=== PATIENT | male | born 1985 | race Caucasian/White ===

== ENCOUNTER 2022-10-26 19:25 | Emergency (ER) | payer SELFPAY ==
[2022-10-26 20:17] VITALS: PULSE 103; RESP 16; TEMP 37.1; O2SAT 96; BMI 51.5
--- NOTE | 2022-10-26 20:33 | ED.EAR1 ---
Documented by User: NERY Ken 10/26/22 20:35 HPI - Ear Problem General Chief complaint: Ear Stated complaint: EARACHE Time Seen by Provider: 10/26/22 20:25 Source: patient Mode of arrival: walk-in Limitations: no limitations History of Present Illness HPI Narrative: patient is a 37-year-old male who presents to the emergency department for decreased hearing in his right ear for the last two weeks. He denies any new or different symptoms today which prompted him to come to the emergency department. He has had no fevers, drainage from the ear. He has no pain in the ear. He states his right ear has slightly decreased hearing compared to the left and he has a history of ear infections. No medications taken prior to arrival. he denies any significant cough, congestion or other upper respiratory symptoms. No fevers. Related Data Home Medications Medication Instructions Recorded Confirmed No Known Home Medications 10/26/22 10/26/22 Previous Rx's Medication Instructions Recorded amoxicillin 500 mg capsule 500 mg PO TID 10 days #30 caps 10/26/22 cetirizine 5 mg-pseudoephedrine ER 1 tab PO BID #10 tabs 10/26/22 120 mg tablet,extended release,12hr (Zyrtec-D) Allergies Allergy/AdvReac Type Severity Reaction Status Date / Time No Known Drug Allergies Allergy Verified 10/26/22 20:16 Review of Systems ROS Constitutional Denies: fever or chills Ears, nose, mouth, and throat Denies: throat pain, nasal discharge or nasal congestion Cardiovascular Denies: chest pain Respiratory Denies: shortness of breath or cough Gastrointestinal Denies: nausea or vomiting Integumentary/Breast Denies: rash Neurological Denies: headache Allergic/Immunologic Denies: hives PFSH [facility] Social History Smoking status: Former smoker Exam Narrative Exam Narrative: Gen.: Awake, alert, in no distress Head: Normocephalic, atraumatic ENT: Moist mucous membranes; left tympanic membrane is minimally fluid-filled, right tympanic membrane is moderately fluid-filled, bulging with evidence of serous otitis media. No perforation or drainage in the canal. Respiratory: No respiratory distress Extremities: Moves extremities equally Psych: Normal mood and affect Neuro: No focal neuro deficit Skin: Warm, dry, intact Constitutional Vital Signs, click to edit/add: Last Vital Signs Temp 98.7 F 10/26/22 20:17 Pulse 103 H 10/26/22 20:17 Resp 16 10/26/22 20:17 Pulse Ox 96 10/26/22 20:17 O2 Del Method Room Air 10/26/22 20:17 Course Vital Signs Vital signs: Vital Signs Temperature 98.7 F 10/26/22 20:17 Pulse Rate 103 H 10/26/22 20:17 Respiratory Rate 16 10/26/22 20:17 Pulse Oximetry 96 10/26/22 20:17 Oxygen Delivery Method Room Air 10/26/22 20:17 Temperature 98.7 F 10/26/22 20:17 Pulse Rate 103 H 10/26/22 20:17 Respiratory Rate 16 10/26/22 20:17 Pulse Oximetry 96 10/26/22 20:17 Oxygen Delivery Method Room Air 10/26/22 20:17 Medical Decision Making MDM Narrative Medical decision making narrative: patient treated for a serous otitis media of the right ear with amoxicillin and Zyrtec-D. Follow-up with PCP and return to the Emergency Room if symptoms change or worsen. Medical Records Medical records reviewed: Yes I reviewed the patient's medical records Discharge Plan Discharge Chief Complaint: Ear Clinical Impression: Acute serous otitis media, Decreased hearing of right ear Patient Disposition: Home, Self-Care Time of Disposition Decision: 20:31 Condition: Good Prescriptions / Home Meds: New cetirizine-pseudoephedrine [Zyrtec-D] 5-120 mg tablet extended release 12 hr 1 tab PO BID Qty: 10 0RF amoxicillin 500 mg capsule 500 mg PO TID 10 Days Qty: 30 0RF No Action No Known Home Medications Instructions: Ear Infection (ED), Fluid In The Ear (Serous Otitis Media) (ED) Stand Alone Forms: Portal Instructions Referrals: Physician,Non-Staff, MD [Primary Care Provider] - 1 week Discharge Date/Time: 10/26/22 20:37 Documented by User: Marita Uribe MD 10/26/22 23:59 HPI - Ear Problem General Chief complaint: Ear Stated complaint: EARACHE Time Seen by Provider: 10/26/22 20:25 Related Data Home Medications Medication Instructions Recorded Confirmed No Known Home Medications 10/26/22 10/26/22 Previous Rx's Medication Instructions Recorded amoxicillin 500 mg capsule 500 mg PO TID 10 days #30 caps 10/26/22 cetirizine 5 mg-pseudoephedrine ER 1 tab PO BID #10 tabs 10/26/22 120 mg tablet,extended release,12hr (Zyrtec-D) Allergies Allergy/AdvReac Type Severity Reaction Status Date / Time No Known Drug Allergies Allergy Verified 10/26/22 20:16 PFSH PFSH Social History Smoking status: Former smoker Exam Constitutional Vital Signs, click to edit/add: Last Vital Signs Temp 98.7 F 10/26/22 20:17 Pulse 103 H 10/26/22 20:17 Resp 16 10/26/22 20:17 Pulse Ox 96 10/26/22 20:17 O2 Del Method Room Air 10/26/22 20:17 Course Vital Signs Vital signs: Vital Signs Temperature 98.7 F 10/26/22 20:17 Pulse Rate 103 H 10/26/22 20:17 Respiratory Rate 16 10/26/22 20:17 Pulse Oximetry 96 10/26/22 20:17 Oxygen Delivery Method Room Air 10/26/22 20:17 Temperature 98.7 F 10/26/22 20:17 Pulse Rate 103 H 10/26/22 20:17 Respiratory Rate 16 10/26/22 20:17 Pulse Oximetry 96 10/26/22 20:17 Oxygen Delivery Method Room Air 10/26/22 20:17 Medical Decision Making MDM Narrative Medical decision making narrative: patient treated for a serous otitis media of the right ear with amoxicillin and Zyrtec-D. Follow-up with PCP and return to the Emergency Room if symptoms change or worsen. Attending physician attestation I have reviewed the mid-level documentation, agree with the documentation, medical decision making and treatment plan as outlined by the mid-level provider. Discharge Plan Discharge Chief Complaint: Ear Clinical Impression: Acute serous otitis media, Decreased hearing of right ear Patient Disposition: Home, Self-Care Time of Disposition Decision: 20:31 Condition: Good Prescriptions / Home Meds: New cetirizine-pseudoephedrine [Zyrtec-D] 5-120 mg tablet extended release 12 hr 1 tab PO BID Qty: 10 0RF amoxicillin 500 mg capsule 500 mg PO TID 10 Days Qty: 30 0RF No Action No Known Home Medications Instructions: Ear Infection (ED), Fluid In The Ear (Serous Otitis Media) (ED) Stand Alone Forms: Portal Instructions Referrals: Physician,Non-Staff, MD [Primary Care Provider] - 1 week Discharge Date/Time: 10/26/22 20:37
== END 2022-10-26 20:37 | disposition home or self-care (01) ==
PROVIDERS: Emergency Provider Emergency Medicine
DX: H65.01 Acute serous otitis media, right ear (principal); H91.92 Unspecified hearing loss, left ear; Z87.891 Personal history of nicotine dependence
CPT/HCPCS: 99283

== ENCOUNTER 2023-02-14 09:10 | Emergency (ER) | payer SELFPAY ==
[2023-02-14 09:15] VITALS: BP 184/94; PULSE 124; RESP 20; TEMP 36.6; O2SAT 96; BMI 51.5
--- NOTE | 2023-02-14 09:31 | ED.EAR1 ---
HPI - Ear Problem General Chief complaint: Ear Stated complaint: SINUS/EAR PAIN R SIDE Time Seen by Provider: 02/14/23 09:25 Source: patient Mode of arrival: walk-in History of Present Illness HPI Narrative: 37-year-old male presents for right ear pain. It started at one hundred 2:00 this morning. He's had some sinus issues recently. No drainage or bleeding coming from his ear. He doesn't complain of a sore throat or left ear pain. The pain is moderate to severe and continuous. Related Data Home Medications Medication Instructions Recorded Confirmed No Known Home Medications 10/26/22 10/26/22 Previous Rx's Medication Instructions Recorded amoxicillin 500 mg capsule 500 mg PO TID 10 days #30 caps 10/26/22 cetirizine 5 mg-pseudoephedrine ER 1 tab PO BID #10 tabs 10/26/22 120 mg tablet,extended release,12hr (Zyrtec-D) amoxicillin 500 mg capsule 500 mg PO TID 10 days #30 caps 02/14/23 ibuprofen 800 mg tablet 800 mg PO Q8H PRN pain #20 tabs 02/14/23 Allergies Allergy/AdvReac Type Severity Reaction Status Date / Time No Known Drug Allergies Allergy Verified 10/26/22 20:16 Review of Systems ROS Narrative A ten point review of systems is negative except as noted above. PFSH PFSH Social History Smoking status: Former smoker Exam Narrative Exam Narrative: Nurses note and vital signs reviewed and patient is not hypoxic. General: The patient appears well and in no apparent distress. Patient is resting comfortably on cart. Skin: Warm, dry, no pallor noted. There is no rash noted. Head: Normocephalic, atraumatic Eye: Normal conjunctiva, no drainage Ears, Nose, Mouth, and Throat: oral mucosa is moist. Nares patent. Mouth without vesicles. left tympanic membrane is normal in appearance and the ear canal has moderate amount of cerumen. Right ear canal has a moderate amount of cerumen but the tympanic membrane is quite erythematous with distorted light reflex. No perforation. Cardiovascular: Regular Rate and Rhythm Respiratory: Patient is in no distress, no accessory muscle use, lungs are clear to auscultation, no wheezing, rales or rhonchi Back: non-tender GI: nontender Musculoskeletal: no joint swelling Neurological: A&O, normal speech Psychiatric: Cooperative Constitutional Vital Signs, click to edit/add: Last Vital Signs Temp 98 F 02/14/23 09:15 Pulse 124 H 02/14/23 09:15 Resp 20 02/14/23 09:15 BP 184/94 H 02/14/23 09:15 Pulse Ox 96 02/14/23 09:15 O2 Del Method Room Air 02/14/23 09:15 Course Vital Signs Vital signs: Vital Signs Temperature 98 F 02/14/23 09:15 Pulse Rate 124 H 02/14/23 09:15 Respiratory Rate 20 02/14/23 09:15 Blood Pressure 184/94 H 02/14/23 09:15 Pulse Oximetry 96 02/14/23 09:15 Oxygen Delivery Method Room Air 02/14/23 09:15 Temperature 98 F 02/14/23 09:15 Pulse Rate 124 H 02/14/23 09:15 Respiratory Rate 20 02/14/23 09:15 Blood Pressure 184/94 H 02/14/23 09:15 Pulse Oximetry 96 02/14/23 09:15 Oxygen Delivery Method Room Air 02/14/23 09:15 Medical Decision Making MDM Narrative Medical decision making narrative: my clinical impression is that he has otitis media and he is prescribed amoxicillin and Motrin. Treatment diagnosis and follow-up were discussed with the patient Differential Diagnosis Differential Diagnosis: otitis media, otitis externa, tympanic membrane perforation, foreign body Discharge Plan Discharge Chief Complaint: Ear Clinical Impression: Otitis media Patient Disposition: Home, Self-Care Time of Disposition Decision: 09:29 Condition: Good Mode of Transportation: Private Vehicle Prescriptions / Home Meds: New amoxicillin 500 mg capsule 500 mg PO TID 10 Days Qty: 30 0RF ibuprofen 800 mg tablet 800 mg PO Q8H PRN (Reason: pain) Qty: 20 0RF No Action No Known Home Medications cetirizine-pseudoephedrine [Zyrtec-D] 5-120 mg tablet extended release 12 hr 1 tab PO BID Qty: 10 0RF amoxicillin 500 mg capsule 500 mg PO TID 10 Days Qty: 30 0RF Instructions: Ear Infection (ED) Stand Alone Forms: Portal Instructions Referrals: Physician,Non-Staff, MD [Primary Care Provider] - 1 week
== END 2023-02-14 09:38 | disposition home or self-care (01) ==
PROVIDERS: Emergency Provider Emergency Medicine
DX: H66.91 Otitis media, unspecified, right ear (principal); Z87.891 Personal history of nicotine dependence
CPT/HCPCS: 99283

== ENCOUNTER 2023-11-06 23:28 | Emergency (ER) | payer SELFPAY ==
[2023-11-06 23:33] VITALS: BP 155/107; PULSE 110; TEMP 36.6; O2SAT 97; BMI 48.1
--- OUTSIDE RECORDS SUMMARY | 2023-11-06 23:36 | XMS_ITS | CCD ---
Author Organization [facility] Care Team Providers Care Human Resource Adviser Name Role Phone DR MICHEAL THOMAS Primary Care Unavailable RADHA POOL Admitting Unavailable CORINE, RADHA Attending Unavailable RADHA POOL Consulting DR MICHEAL Garcia Primary Care Unavailable HALLE, DR SANTY Galvan Admitting Unavailabl e REINDAVIN, DR SANTY Galvan Attending Unavailabl e REINECK, DR SANTY Galvan Consulting Unavailabl e Problems Active Problems Problem Classification Problem Date Documented Da te Episodic/Chronic Other ear and sense organ disorders (4 sources) Otalgia, right ear; Translations: [OTALGIA RIGHT EAR] Onset: 03-14-2022 Episodic Past or Other Problems Problem Classification Problem Date Documented Da te Episodic/Chronic E Codes: Cut/pierceb (1 source) Nail entering through skin, initial encounter; Translations: [NAIL ENTERING THROUGH SKIN INITIAL] Onset: 08-11-2021 Episodic Immunizations and screening for infectious disease (1 source) Encounter for immunization; Translations: [ENCOUNTER FOR IMMUNIZATION] Onset: 08-11-2021 Episodic Otitis media and related conditions (1 source) Otitis media, unspecified, right ear; Translations: [OTITIS MEDIA UNSPECIFIED RIGHT EAR] Onset: 08-11-2021 Episodic Superficial injury; contusion (1 source) Abrasion, right lower leg, initial encounter; Translations: [ABRASION RIGHT LOWER LEG INITIAL] Onset: 08-11-2021 Episodic Encounters Encounter Date Encounter Type Care Provider Facility Start: 03-14-2022 End: 03-14-[address] MICHEAL THOMAS Facility[facility] Start: 08-09-2021 End: 08-09-[address] MICHEAL THOMAS Facility[facility] Payers Date Payer Category Payer Unknown [id number] 1984 Unknown [id number] 1960 Self-pay [id number] Summary Purpose Family History No Family History Records Found Advance Directives No Advanced Directives Records Found Additional Source Comments (unrecognized sect ion and content) No Status Records Found INFORMATION SOURCE (unrecogn ized section and content) DATE CREATED AUTHOR 03/16/2022 [facility] FOR RECORDS PERTAINING TO PATIENTS WHO ARE OR HAVE BEEN ENROLLED IN A CHEMICAL DEPENDENCY/SUBSTANCEABUSE PROGRAM, SOME INFORMATION MAY BE OMITTED. This clinical summary was aggregated from multiple sources. Caution should be exercised in using it in the provision of clinical care. This summary normalizes information from multiple sources, and as a consequence, information in this document may materially change the coding, format and clinical context of patient data. In addition, data may be omitted in some cases. CLINICAL DECISIONS SHOULD BE BASED ON THE PRIMARY CLINICAL RECORDS. [facility] [email or web address] [facility]. provides no warranty or guarantee of the accuracy or completeness of information in this document.
--- NOTE | 2023-11-07 00:01 | ED_ITS ---
HPI - Ear Problem General Chief complaint: Ear Stated complaint: RT EAR PAIN Time Seen by Provider: 11/06/23 23:37 Source: patient Mode of arrival: walk-in Limitations: no limitations History of Present Illness HPI Narrative: This 38-year-old male with a history of recurrent right-sided ear infections who has had an ear tube in the past placed by Dr. Henry presents for evaluation of right-sided ear pain. He is concerned that he is getting another ear infection because it feels similar. He denies any severe headache. He denies any fever. He has no drainage out of the ear. He denies any chest pain shortness of breath or other symptoms. Related Data Home Medications ?Medication ?Instructions ?Recorded ?Confirmed No Known Home Medications 10/26/22 11/06/23 Previous Rx's ?Medication ?Instructions ?Recorded amoxicillin 500 mg capsule 500 mg PO TID 10 days #30 caps 10/26/22 cetirizine 5 mg-pseudoephedrine ER 1 tab PO BID #10 tabs 10/26/22 120 mg tablet,extended release,12hr (Zyrtec-D) amoxicillin 500 mg capsule 500 mg PO TID 10 days #30 caps 02/14/23 ibuprofen 800 mg tablet 800 mg PO Q8H PRN pain #20 tabs 02/14/23 Allergies Allergy/AdvReac Type Severity Reaction Status Date / Time No Known Drug Allergies Allergy Verified 11/06/23 23:37 Review of Systems ROS Status of ROS 10 or more systems reviewed and unremark able except as noted in history and below PFSH PFSH Social History Smoking status: Former smoker Exam Narrative Exam Narrative: Vital signs and Nursing Notes reviewed: Patient is afebrile, he is mildly tachycardic with a pulse of 110, blood pressure is elevated at 155/107, he is not hypoxic with pulse ox of 97% on room air General: Awake, alert, oriented, overweight male, no respiratory distress HEENT: Normocephalic atraumatic, mucous membranes are moist and pink, eyes are clear, normal conjunctiva, vision is grossly intact, posterior pharynx is normal in appearance. There is an effusion behind the right tympanic membrane with mild erythema of the tympanic membrane with no sign of perforation or exudate in the external ear canal, there is no mastoid tenderness or redness Neck: Supple, no meningeal signs, no anterior or posterior cervical lymphadenopathy Chest: Lungs are clear to auscultation with good air entry, there is no wheezing rhonchi or rales appreciated no accessory muscle use, patient is speaking in complete sentences-no chest wall tenderness to palpation CVS: Regular rate and rhythm S1-S2, no murmurs rubs or gallops, pulses are brisk and equal bilaterally ABD: Soft, nondistended, nontender, no rebound guarding or rigidity, bowel sounds are normal, no pulsatile masses appreciated Extremities: Moving all extremities, no lower extremity tenderness or swelling noted, negative Homans' sign, pulses are brisk and equal bilaterally Skin: Normal in appearance without rash,pallor, petechiae or purpura Neuro: No focal deficits Constitutional Vital Signs, click to edit/add: Last Vital Signs Temp 97.8 F 11/06/23 23:33 Pulse 110 H 11/06/23 23:33 Resp 11/06/23 23:33 BP 155/107 H 11/06/23 23:33 Pulse Ox 97 11/06/23 23:33 O2 Del Method Room Air 11/06/23 23:33 Course Vital Signs Vital signs: Vital Signs Temperature 97.8 F 11/06/23 23:33 Pulse Rate 110 H 11/06/23 23:33 Respiratory Rate 11/06/23 23:33 Blood Pressure 155/107 H 11/06/23 23:33 Pulse Oximetry 97 11/06/23 23:33 Oxygen Delivery Method Room Air 11/06/23 23:33 Temperature 97.8 F 11/06/23 23:33 Pulse Rate 110 H 11/06/23 23:33 Respiratory Rate 11/06/23 23:33 Blood Pressure 155/107 H 11/06/23 23:33 Pulse Oximetry 97 11/06/23 23:33 Oxygen Delivery Method Room Air 11/06/23 23:33 Medical Decision Making MDM Narrative Medical decision making narrative: This patient presents with right-sided ear pain that started earlier in the day. He has a history of chronic ear infections in this ear for which he has had ear tubes in the past. He does not follow-up with ENT anymore. His blood pressure was mildly elevated and pulse was mildly elevated likely related to pain. He denies any chest pain or shortness of breath. He does have an effusion and redness behind the right tympanic membrane without signs of perforation or otitis externa. There is no mastoid tenderness or redness. He was medicated with amoxicillin ibuprofen in the emergency department and will be discharged home with prescriptions for the same. He will be referred back to Dr. Henry who has put ear tubes in this patient in the past. He is otherwise stable for discharge. Medical Records Medical records reviewed: Yes I reviewed the patient's medical records Discharge Plan Discharge Chief Complaint: Ear Clinical Impression: Acute serous otitis media Patient Disposition: Home, Self-Care Time of Disposition Decision: 00:00 Condition: Good Prescriptions / Home Meds: No Action No Known Home Medications cetirizine-pseudoephedrine [Zyrtec-D] 5-120 mg tablet extended release 12 hr 1 tab PO BID Qty: 10 0RF amoxicillin 500 mg capsule 500 mg PO TID 10 Days Qty: 30 0RF amoxicillin 500 mg capsule 500 mg PO TID 10 Days Qty: 30 0RF ibuprofen 800 mg tablet 800 mg PO Q8H PRN (Reason: pain) Qty: 20 0RF Print Language: Kinyarwanda Instructions: Ear Infection (ED) Referrals: Jenny Henry MD [Physician] - 1 week Physician,Non-Staff, [Primary Care Provider] - 1 week
[2023-11-07] MEDS: IBUPROFEN 600 MG TABLET PO (00:11)
[2023-11-07] MEDS: AMOXICILLIN 500 MG CAPSULE 1000 MG PO (00:12)
[2023-11-07 00:13] VITALS: BP 134/97
== END 2023-11-07 00:16 | disposition home or self-care (01) ==
PROVIDERS: Emergency Provider Emergency Medicine
DX: H65.01 Acute serous otitis media, right ear (principal); Z87.891 Personal history of nicotine dependence
CPT/HCPCS: 99283